=== PATIENT | male | born 1960 | race African-American/Black ===

== ENCOUNTER 2016-11-24 19:35 | Observation (INO) | payer OTHER ==
[~2016-11-24] VITALS: Ht 180.3 cm; Wt 93.7 kg
[2016-11-24] VITALS (171 sets, daily range): BP systolic 126; BP diastolic 81; PULSE 42; TEMP 98.2; O2SAT 93–100
[~2016-11-24 19:35] MED LIST: ASPIRIN E.C. 8181 MG PO; BYSTOLIC2.5 MG PO; MICARDIS HCT 251 TAB PO; NEXIUM 20MG20 MG PO; SINGULAIR 110 MG/TAB PO; TAMBOCOR 1100 MG/TAB PO; VENTOLIN0.09 MG IH; WELLBUTRIN 100100 MG PO; ZOCOR 40MG40 MG PO; ZOLOFT 50MG50 MG PO
[2016-11-24] MEDS ORDERED: LIPITOR 80MG80 MG PO (20:32)
[2016-11-24] MEDS ORDERED: VIAGRA100 M1 PO (20:38)
[2016-11-24] MEDS ORDERED: LIDODERM 5% PATC1 EA TP (20:41)
[2016-11-24] MEDS ORDERED: FLONASE NASAL S16 GM NS (20:42)
[2016-11-24] MEDS ORDERED: PATANOL OPHTHALM5 ML OU (20:43)
[2016-11-24] MEDS ORDERED: TAMBOCOR 1100 MG/TAB PO (20:45)
[2016-11-24] MEDS ORDERED: FLEXERIL 1010 MG/TAB PO (20:45)
[2016-11-24] MEDS ORDERED: FISH OIL 1000MG1 CAP PO (20:46)
[2016-11-24] MEDS ORDERED: CENTRUM SILVER1 TAB PO (20:46)
[2016-11-24 23:36] LABS: MAGNESIUM 1.9 mg/dL (1.6-2.3)
[2016-11-24 23:48] LABS: TROPONIN-I 0.017 ng/mL (0.000-0.034)
[2016-11-25] VITALS (518 sets, daily range): BP systolic 119–129; BP diastolic 69–85; PULSE 48–60; TEMP 97.7–98.7; O2SAT 82–100
[2016-11-25 05:58] LABS: BASO % 0.6 % (0.0-2.0); EOS # 0.3 (0.0-0.7); EOS % 4.1 % (0-4.0); GRAN # 3.2 (1.4-6.5); GRAN % 45.7 % (42.2-75.2); HEMATOCRIT 46.1 % (42.0-52.0); HEMOGLOBIN 15.3 g/dl (13.5-18.0); LYMPH # 2.5 (1.2-3.4); LYMPH % 35.3 % (20.0-51.0); MEAN CELL VOLUME 85 fl (80.0-100.0); MEAN CORPUSCULAR HEMOGLOBIN 28 pg (27.0-31.0); MEAN CORPUSCULAR HGB CONC 33 g/dl (33.0-37.0); MEAN PLATELET VOLUME 11.2 fl (7.4-10.4); MONO % 13.9 % (1.7-9.3); PLATELET COUNT 217 K/mm3 (130-400); RED BLOOD COUNT 5.41 M/mm3 (4.20-5.60); REDCELL DISTRIBUTION WIDTH-CV 13.2 % (11.5-14.5)
[2016-11-25 06:13] LABS: ADJUSTED CALCIUM 9.3 mg/dL (8.4-10.2); ALBUMIN 3.6 gm/dL (3.5-5.0); BILIRUBIN,TOTAL 0.8 mg/dL (0.0-1.0); CREATININE, serum 1.2 mg/dL (0.66-1.25)
[2016-11-25 06:42] LABS: PSA-TOTAL 0.71 ng/mL (0-4)
[2016-11-25] MEDS ORDERED: XARELTO15 MG PO (09:37)
[2016-11-26 13:11] LABS: FACTOR V LEIDEN MUTATION B Negative (Negative)
[2016-11-28 10:45] LABS: PROTEIN C ACTIVITY 81 % (70-150)
[2016-11-28 10:49] LABS: PROTEIN S ACTIVITY 80 % (65-149)
[2016-11-28 13:46] LABS: LUPUS ANTICOAGULANT INR 1.1 (()); LUPUS ANTICOAGULANT PT 11.6 sec (())
[2016-11-28 14:08] LABS: LUPUS ANTICOAGULANT PTT 34 sec (26 - 36)
[2016-11-28 17:54] LABS: .ANTICARDIOLIPIN IGG <9.4 GPL (()); .ANTICARDIOLIPIN IGM <9.4 MPL (())
== END 2016-11-25 11:55 | disposition home or self-care (01) ==
LOC: ICU 19:35
PROVIDERS: Internal Medicine
DX: I48.2 Chronic atrial fibrillation (principal); I26.99 Other pulmonary embolism without acute cor pulmonale; I10 Essential (primary) hypertension; E78.5 Hyperlipidemia, unspecified; Z68.29 Body mass index [BMI] 29.0-29.9, adult
CPT/HCPCS: 99223-AI; G0103; G0378; G0379

== ENCOUNTER 2017-03-10 07:47 | Outpatient (CLI) | payer OTHER ==
[~2017-03-10] VITALS: Ht 180.3 cm; Wt 99.0 kg
[~2017-03-10 07:47] MED LIST changes: +CENTRUM SILVER1 TAB PO; +FISH OIL 1000MG1 CAP PO; +FLEXERIL 1010 MG/TAB PO; +FLONASE NASAL S16 GM NS; +LIDODERM 5% PATC1 EA TP; +LIPITOR 80MG80 MG PO; +PATANOL OPHTHALM5 ML OU; +VIAGRA100 M1 PO; +XARELTO15 MG PO
[2017-03-10 08:11] VITALS: BP 121/60; PULSE 63; TEMP 98.1
[2017-03-10] MEDS ORDERED: XARELTO10 MG PO (08:22)
[2017-03-10 08:23] LABS: HEMATOCRIT 42.2 % (42.0-52.0); HEMOGLOBIN 14.2 g/dl (13.5-18.0); MEAN CELL VOLUME 85 fl (80.0-100.0); MEAN CORPUSCULAR HEMOGLOBIN 29 pg (27.0-31.0); MEAN CORPUSCULAR HGB CONC 34 g/dl (33.0-37.0); MEAN PLATELET VOLUME 10.4 fl (7.4-10.4); PLATELET COUNT 227 K/mm3 (130-400); RED BLOOD COUNT 4.96 M/mm3 (4.20-5.60); REDCELL DISTRIBUTION WIDTH-CV 13.2 % (11.5-14.5); WHITE BLOOD COUNT 6.5 K/mm3 (4.8-10.8)
[2017-03-10] MEDS ORDERED: ZYRTEC 10MG10 MG PO (08:23)
[2017-03-10 09:45] VITALS: BP 120/69; PULSE 53; TEMP 97.9
== END 2017-03-10 10:53 | disposition home or self-care (01) ==
LOC: COL.CAR 07:47
PROVIDERS: Internal Medicine Interventional Cardiology
DX: I48.0 Paroxysmal atrial fibrillation (principal); I26.99 Other pulmonary embolism without acute cor pulmonale; I10 Essential (primary) hypertension; Z83.3 Family history of diabetes mellitus
CPT/HCPCS: C1764

== ENCOUNTER 2017-06-16 08:09 | Day surgery (SDC) | payer OTHER ==
[2017-06-16] VITALS (7 sets, daily range): BP systolic 111–138; BP diastolic 7–83; PULSE 51–57; TEMP 97.9
[~2017-06-16] VITALS: Ht 180.3 cm; Wt 100.0 kg
[~2017-06-16 08:09] MED LIST changes: +XARELTO10 MG PO; +ZYRTEC 10MG10 MG PO
[2017-06-16 08:52] LABS: HEMATOCRIT 43.2 % (42.0-52.0); HEMOGLOBIN 14.6 g/dl (13.5-18.0); MEAN CELL VOLUME 85 fl (80.0-100.0); MEAN CORPUSCULAR HEMOGLOBIN 29 pg (27.0-31.0); MEAN CORPUSCULAR HGB CONC 34 g/dl (33.0-37.0); PLATELET COUNT 234 K/mm3 (130-400); RED BLOOD COUNT 5.11 M/mm3 (4.20-5.60); REDCELL DISTRIBUTION WIDTH-CV 12.9 % (11.5-14.5); WHITE BLOOD COUNT 12.8 K/mm3 (4.8-10.8)
[2017-06-16 08:54] LABS: INR 1.1 (0.8-3.0); PROTHROMBIN TIME 11.9 SECONDS (9.7-12.8)
[2017-06-16 09:14] LABS: CALCIUM 8.8 mg/dL (8.4-10.2); CREATININE, serum 1.15 mg/dL (0.66-1.25); POTASSIUM 4.1 mmol/L (3.4-5.0)
[2017-06-16] MEDS ORDERED: WELLBUTRIN XL300 M1 PO (09:40)
== END 2017-06-16 13:00 | disposition home or self-care (01) ==
LOC: COL.CAR 08:09
PROVIDERS: Internal Medicine Interventional Cardiology
DX: R94.39 Abnormal result of other cardiovascular function study (principal); I10 Essential (primary) hypertension; I48.1 Persistent atrial fibrillation; I26.99 Other pulmonary embolism without acute cor pulmonale; R07.9 Chest pain, unspecified; Z79.01 Long term (current) use of anticoagulants; Z83.3 Family history of diabetes mellitus; Z95.818 Presence of other cardiac implants and grafts
CPT/HCPCS: C1769; J1200; J2250; J3010; Q9967

== ENCOUNTER → 2018-04-04 | Outpatient (CLI) | payer OTHER ==
[~2018-04-04] MED LIST changes: +WELLBUTRIN XL300 M1 PO
== END ==
LOC: MHCPAIN 15:34
DX: G89.29 Other chronic pain (principal); M54.12 Radiculopathy, cervical region; M47.812 Spondylosis without myelopathy or radiculopathy, cervical region
CPT/HCPCS: G0463

== ENCOUNTER → 2018-04-26 | Outpatient (CLI) | payer OTHER | LOC: MHCPAIN 12:56 | DX: M50.90 Cervical disc disorder, unspecified, unspecified cervical region (principal); M54.12 Radiculopathy, cervical region | CPT/HCPCS: A9585; J1100; J2250; J3010 ==

== ENCOUNTER → 2020-04-08 | Outpatient (CLI) | payer OTHER | LOC: COL.RAD 07:30 | DX: M48.02 Spinal stenosis, cervical region (principal); M50.120 Mid-cervical disc disorder, unspecified level; M50.10 Cervical disc disorder with radiculopathy, unspecified cervical region | CPT/HCPCS: A9585 ==

== ENCOUNTER 2021-01-01 09:45 | Outpatient (CLI) | payer OTHER ==
[~2021-01-01] VITALS: Ht 180.3 cm; Wt 99.6 kg
[2021-01-01] VITALS (7 sets, daily range): BP systolic 128–141; BP diastolic 70–88; PULSE 60–71; TEMP 98.4
[2021-01-01 10:46] LABS: HEMATOCRIT 39.7 % (42.0-52.0); HEMOGLOBIN 12.9 g/dl (13.5-18.0); MEAN CELL VOLUME 83 fl (80.0-100.0); MEAN CORPUSCULAR HEMOGLOBIN 27 pg (27.0-31.0); MEAN CORPUSCULAR HGB CONC 33 g/dl (33.0-37.0); MEAN PLATELET VOLUME 10.4 fl (7.4-10.4); PLATELET COUNT 258 K/mm3 (130-400); RED BLOOD COUNT 4.79 M/mm3 (4.20-5.60); REDCELL DISTRIBUTION WIDTH-CV 13.9 % (11.5-14.5)
[2021-01-01] MEDS ORDERED: GLUCOPHAGE1000 MG PO (10:51)
[2021-01-01 10:56] LABS: INR 1.2 (0.8-3.0); PROTHROMBIN TIME 12.9 SECONDS (9.7-12.8)
[2021-01-01 11:02] LABS: CALCIUM 8.6 mg/dL (8.4-10.2); CREATININE, serum 1.16 (0.66-1.25); POTASSIUM 3.8 mmol/L (3.4-5.0)
--- NOTE | 2021-01-01 12:34 | NUR ---
SEE MERGE FOR ALL MEDICATION ADMINISTRATION TIMES, INTRA AND POST SEDATION ASSESSMENTS
--- NOTE | 2021-01-01 13:30 | NUR ---
Report from Vidya BLANCAS. Alert and oriented, denies pain at this time. VSS.
--- NOTE | 2021-01-01 14:40 | NUR ---
INT discontinued intact. Discharge instructions given. Transferred to private car by sonia
== END 2021-01-01 14:40 | disposition home or self-care (01) ==
LOC: COL.CAR 09:45
PROVIDERS: Internal Medicine Interventional Cardiology
DX: I48.0 Paroxysmal atrial fibrillation (principal); I10 Essential (primary) hypertension; Z79.01 Long term (current) use of anticoagulants; Z88.3 Allergy status to other anti-infective agents; Z79.84 Long term (current) use of oral hypoglycemic drugs; Z79.52 Long term (current) use of systemic steroids; Z86.16 Personal history of COVID-19; Z86.711 Personal history of pulmonary embolism
CPT/HCPCS: C1764; J0690; J2250; J3010